=== PATIENT | female | born 1980 | race African-American/Black ===

== ENCOUNTER → 2020-12-20 07:31 | Outpatient (BNVA) | payer MEDICAID, SELFPAY | PROVIDERS: PCP Internal Medicine; Visit Provider Surgery ==

== ENCOUNTER → 2021-01-10 08:21 | Outpatient (BNVA) | payer MEDICAID, SELFPAY | PROVIDERS: PCP Internal Medicine; Visit Provider Surgery ==

== ENCOUNTER → 2021-01-21 08:40 | Outpatient (BNVA) | payer MEDICAID, SELFPAY | PROVIDERS: PCP Internal Medicine; Visit Provider Dietitian, Registered | DX: E66.01 Morbid (severe) obesity due to excess calories (principal); Z68.45 Body mass index [BMI] 70 or greater, adult | CPT/HCPCS: 97802 ==

== ENCOUNTER → 2021-02-11 08:28 | Outpatient (BNVA) | payer MEDICAID, SELFPAY | PROVIDERS: PCP Internal Medicine; Visit Provider Dietitian, Registered ==

== ENCOUNTER 2024-04-24 10:32 | Outpatient (REF) | payer MEDICAID, SELFPAY ==
[2024-04-24 14:29] LABS: MANUAL DIFF FLAG NO
[2024-04-24 14:36] LABS: Basophils Percent Auto 0.5 % (0-2); Eosinophils Absolute Auto 0.1 X10*3/uL (0.0-0.4); Eosinophils Percent Auto 2.2 % (0-4); Hematocrit 38.3 % (37.0-47.0); Hemoglobin 11.7 g/dl (12.0-16.0); Imm Gran Abs Auto 0.04 X10*3/uL (0.00-0.03); Imm Gran Pct Auto 0.7 % (0.0-0.4); Lymphocytes Absolute Auto 1.9 X10*3/uL (1.2-4.9); Lymphocytes Percent Auto 31.6 % (20-40); Mean Corpuscular HGB Conc 30.5 g/dl (31.0-35.0); Mean Corpuscular Hemoglobin 20.9 pg (27.0-33.0); Mean Corpuscular Volume 68.5 fL (80.0-98.0); Mean Platelet Volume 9.9 fL (9.4-12.3); Monocytes Absolute Auto 0.3 X10*3/uL (0.1-1.2); Monocytes Percent Auto 5.7 % (2-11); Neutrophils Absolute Auto 3.6 x10*3/uL (2.0-8.3); Neutrophils Percent Auto 59.3 % (45-73); Platelet Count 393 X10*3/uL (160-400); Red Blood Count 5.59 X10*6/uL (4.20-5.50); Red Cell Distribution Width 19.7 % (11.0-16.0)
[2024-04-24 14:57] LABS: Estimated Average Glucose 97 mg/dL
[2024-04-24 15:03] LABS: Alanine Aminotransferase 16 U/L (0-31); Albumin Level 3.9 g/dL (3.5-5.0); Alkaline Phosphatase 73 U/L (39-117); Anion Gap 13 (12-20); Aspartate Amino Transferase 13 U/L (5-31); Bilirubin Total 0.2 mg/dL (0.0-1.0); Blood Urea Nitrogen 10 mg/dL (9-16); Calcium 9.9 mg/dL (8.4-10.2); Carbon Dioxide 25 mmol/L (22-29); Chloride 106 mmol/L (96-108); Cholesterol 195 mg/dL (<200); Estimated Glomerular Filt Rate > 60; Glucose Random 85 mg/dL (60-115); HDL Cholesterol 37 mg/dL (>40); LDL Cholesterol Calculated 133 mg/dL (<100); Potassium 3.8 mmol/L (3.3-5.1); Sodium 140 mmol/L (135-145); Total Protein 7.5 g/dL (6.5-8.0); Triglycerides 129 mg/dL (<150)
[2024-04-24 16:10] LABS: Free T4 (Free Thyroxine) 0.82 ng/dL (0.71-1.85)
== END 2024-04-24 10:33 | disposition home or self-care (01) ==
LOC: HO.CHCLDS 10:32
PROVIDERS: Visit Provider Internal Medicine
DX: E66.01 Morbid (severe) obesity due to excess calories (principal)
CPT/HCPCS: 36415; 80053; 80061; 83036; 84439; 84443; 85025

== ENCOUNTER 2025-08-31 14:34 | Outpatient (REF) | payer MEDICAID, SELFPAY ==
--- OUTSIDE RECORDS SUMMARY | 2025-08-31 13:45 | XMS_ITS | Encounter Summary ---
Author Organization [employer] Address [address] [facility] 7 [place] [address] Care Team Providers Care Computer Operations Specialist Name Role Phone Mahad Khan MD Primary Care Prov ider Reason for Visit * Reason Comments Annual Exam Encounter Details Date Type Department Care Team ([facility] st Contact Info) Description 2025 1:45 PM EST Office Visit [facility] MED & PEDS [address] [place], [place] [phone] Mahad Khan MD [address] [place] [address] Iron deficiency anemia due to chronic blood loss (Primary Dx); Severe obesity (BMI >= 40) (CMS/HCC) (HCC) Social History Tobacco Use Types Packs/Day Years Used Date Smoking Tobacco: Never Smokeless Tobacco: Never Depression Answer Date Recorded Patient Health Questionnaire-9 Score 5 2025 Patient Health Questionnaire-9 Score 5 2025 Last PHQ-9: Questionnaire Data Not on file 1 11/01/2024 Housing Stability Answer Date Recorded What is your housing situation today? I have gonzalez harkins [address] you li ve. Do you have problems with any of the following? I am not sure 2025 Food Insecurity Answer Date Recorded Within the past 12 months, y ou worried that your food would run out before you got money to buy more: Sometimes True 2024 Within the past 12 months,th e food you bought just didn't last and you didn't have enough money to get more: Sometimes True 2025 Transportation Answer Date Recorded In the past 12 months, has l ack of transportation kept you from medical appts, meetings, work or from getting things needed for daily living? Yes, it has kept me from non-medical meetings, work, or getting things that I need 2025 Utilities Answer Date Recorded In the past 12 months, has t he electric, gas, oil or water company threatened to shut off services in your home? No 2025 Depression Answer Date Recorded Patient Health Questionnaire-2 Score 2 2025 Internet Access Answer Date Recorded Internet Access Q1 Yes 2025 Internet Access Q2 Not on file 2025 Comments Unknown Sex and Gender Information Value Date Recorded Sex Assigned at Female 07/17/2022 10:36 AM EDT Legal Sex Female 10:36 AM EDT Gender Identity Female 07/17/2022 10:36 AM EDT Sexual Orientation Straight 07/17/2022 10 :36 AM EDT documented as of this encounter Last Filed Vital Signs Vital Sign Reading Time Taken Comments Blood Pressure 140/70 2025 1:49 PM EST Pulse 70 2025 1:49 PM EST Temperature 37 C (98.6 F) 2025 1:49 PM EST Respiratory Rate 20 2025 1:49 PM EST Oxygen Saturation 98% 2025 1:49 PM EST Inhaled Oxygen Concentration - - Weight 191 kg (420 lb) 2025 1:49 PM EST Height 157.5 cm (5' 2 ) 2025 1:49 PM EST Body Mass Index 76.82 2025 1:49 PM EST documented in this encounter Functional Status * Over the past 2 weeks, how often have you been bothered by any of the following problems? Question Answer Date of Assessment Author Patient Health Questionnaire -2 Score 2 2025 2:21 PM EST Federico Buckley MA * Little interest or pleasure in doing things Answer Date of Assessment Author Several days 2025 2:21 PM EST Gay-Co Marline schneider [place] * Feeling down, depressed, or hopeless Answer Date of Assessment Author Several days 2025 2:21 PM EST Gay-Marline Parsons MA * Trouble falling or staying asleep, or sleeping too much Answer Date of Assessment Author Not at all 2025 2:21 PM EST Rashid-Co Marline schneider MA * Feeling tired or having little energy Answer Date of Assessment Author Several days 2025 2:21 PM EST Gay-Co Marline schneider [place] * Poor appetite or overeating Answer Date of Assessment Author Not at all 2025 2:21 PM EST Gay-Co Marline schneider MA * Feeling bad about yourself - or that you are a failure or have let yourself or your family down Answer Date of Assessment Author Several days 2025 2:21 PM EST Gay-Co Marline schneider MA * Trouble concentrating on things, such as reading the newspaper or watching television Answer Date of Assessment Author Not at all 2025 2:21 PM Marline Mariee MA * Moving or speaking so slowly that other people could have noticed? Or the opposite - being so fidgety or restless that you have been moving around a lot more than usual. Answer Date of Assessment Author Several days 2025 2:21 PM EST KarlaCo Marline schneider MA * Thoughts that you would be better off or hurting yourself in some way Answer Date of Assessment Author Not at all 2025 2:21 PM EST KarlaCo Marline schneider MA * Patient Health Questionnaire-9 Score Answer Date of Assessment Author 5 2025 2:21 PM EST Gay-Co Marline schneider MA * How difficult have these problems made it for you to do your work, take care of things at home, or get along with other people? Answer Date of Assessment Author Not difficult at all 2025 2:21 PM EST Marline Acevedo MA documented as of this encounter Progress Notes * Mahad Medrano MD - 2025 1:45 PM EST Subjective Patient ID: Chana Collins is a 45 y.o. female who presents for Annual Exam. HPI Patient was seen on office for a physical examination Review of Systems Constitutional: Negative for chills, fatigue and fever. Respiratory: Negative for cough and shortness of breath. Cardiovascular: Negative for chest pain and palpitations. Gastrointestinal: Negative for abdominal distention and abdominal pain. Genitourinary: Negative for difficulty urinating and dysuria. Psychiatric/Behavioral: Negative for agitation. Objective Physical Exam Constitutional: Appearance: Normal appearance. HENT: Right Ear: Tympanic membrane, ear canal and external ear normal. There is no impacted cerumen. Left Ear: Tympanic membrane, ear canal and external ear normal. There is no impacted cerumen. Cardiovascular: Rate and Rhythm: Normal rate and regular rhythm. Heart sounds: No murmur heard. Pulmonary: Effort: Pulmonary effort is normal. No respiratory distress. Breath sounds: No stridor. No wheezing or rhonchi. Abdominal: General: Abdomen is flat. There is no distension. Palpations: There is no mass. Tenderness: There is no abdominal tenderness. Hernia: No hernia is present. Musculoskeletal: General: Normal range of motion. Cervical back: Normal range of motion. No rigidity or tenderness. Lymphadenopathy: Cervical: No cervical adenopathy. Neurological: General: No focal deficit present. Mental Status: She is alert and oriented to person, place, and time. Psychiatric: Mood and Affect: Mood normal. Behavior: Behavior normal. Assessment/Plan Problem List Items Addressed This Visit Iron deficiency anemia - Primary Mild anemia, will order iron levels for further evaluation Relevant Orders Iron And Total Iron Binding Capacity Vitamin B12 (Cobalamin) and Folate Panel, Serum Severe obesity (BMI >= 40) (CMS/HCC) ([facility]) Will start on phentermine and topamax follow up in 1 month for tolerance Relevant Medications phentermine 15 MG capsule topiramate (Topamax) 50 MG tablet documented in this encounter Miscellaneous Notes * Assessment & Plan Note - Mahad Medrano MD - 2025 2:20 PM ESTAssociated Problem(s): Iron deficiency anemia Mild anemia, will order iron levels for further evaluation * Assessment & Plan Note - Mahad Medrano MD - 2025 2:20 PM ESTAssociated Problem(s): Severe obesity (BMI >= 40) (CMS/HCC) (HCC) Will start on phentermine and topamax follow up in 1 month for tolerance documented in this encounter Plan of Treatment Upcoming Encounters Date Type Department Care Team (Late st Contact Info) Description 10/09/2025 9:30 AM EST Clinical Support [facility]S [address] [place] [address] 10/12/2025 8:30 AM EST Telemedicine [facility] [address] [place] [address] Mahad Khan MD [address] [place] [address] documented as of this encounter Procedures Procedure Name Priority Date/Time Associated Diagnosis Comments VITAMIN B12/FOLATE, SERUM PANEL Routine 2025 2:35 PM EST Iron deficiency anemia due to chronic blood loss IRON AND TOTAL IRON BINDING CAPACITY Routine 2025 2:35 PM EST Iron deficiency anemia due to chronic blood loss documented in this encounter Results * Vitamin B12 (Cobalamin) and Folate Panel, Serum (2025 2:35 PM EST) Vitamin B12 413 200 - 900 pg/mL [facility] Comment:NORMAL 200-900 PG/ML INDETERMINATE 160-199 PG/ML DEFICIENT < 160 PG/ML Folate 6.8 > or = 4.0 ng/mL [facility] Comment:Reference Values:> o r = 4.0 ng/mL< 4.0 ng/mL suggests folate deficiency Methotrexate, aminopterin and folinic acid(leucovorin) are chemotherapeutic agents whose molecularstructures are similar to folate; therefore, the Architectfolate assay cannot be used for patients using these drugs. Blood Venous blood specimen / Unknown 2025 2:35 PM EST 2025 6:09 PM EST us Mahad Medrano MD LAB BLOOD ORDERABL ES Final Result Performing Organization Address [facility] Co de Phone Number [facility] [address] [place] [address] [phone] * (ABNORMAL) Iron And Total Iron Binding Capacity (2025 2:35 PM EST) Iron 23(L) 30 - 160 mcg/dL [facility] Total Iron Binding Capacity 327 228 - 428 mcg/dL [facility] Percent Iron Saturation 7(L) 15 - 50 % [facility] Unsaturated Iron Binding 304 ug/dL [facility] Blood Venous blood specimen / Unknown 2025 2:35 PM EST 2025 6:09 PM EST us Mahad Medrano MD LAB BLOOD ORDERABL ES Final Result Performing Organization Address [facility] de Phone Number [facility] [address] [place] [phone] documented in this encounter Visit Diagnoses Diagnosis Iron deficiency anemia due to chronic blood loss- Primary Iron deficiency anemia secondary to blood loss (chronic) Severe obesity (BMI >= 40) (CMS/HCC) (HCC) documented in this encounter Additional Health Concerns Assessment Noted Time PHQ-9 Depression Total Score: 5 08/31/20 25 2:21 PM EST documented as of this encounter Care Teams Computer Operations Specialist Relationship Specialty Start Date End Date Mahad Khan MD [address] [place] [phone] PCP - General Internal Medicine 11/28/19 documented as of this encounter
[2025-08-31 18:34] LABS: Iron 23 mcg/dL (30-160); Percent Iron Saturation 7 % (15-50); Total Iron Binding Capacity 327 mcg/dL (228-428); Unsaturated Iron Binding 304 ug/dL
[2025-08-31 19:14] LABS: Folate 6.8 ng/mL (> or = 4.0); Vitamin B12 413 pg/mL (200-900)
--- OUTSIDE RECORDS SUMMARY | 2025-08-31 21:03 | XMS_ITS | Encounter Summary ---
Author Organization [employer] Address [address] [facility] 7 [place] [address] Care Team Providers Care Filenet Architect Name Role Phone Mahad Khan MD Primary Care Prov ider Reason for Visit * Reason Comments Med Refill Encounter Details Date Type Department Care Team ([facility] st Contact Info) Description 01/11/2024 Refill [facility] MED & PEDS [address] [place], [place] [phone] Mahad Khan MD [address] [place] [address] Social History Tobacco Use Types Packs/Day Years Used Date Smoking Tobacco: Never Assessed Depression Answer Date Recorded Patient Health Questionnaire-9 Score 0 12/28/2022 Housing Stability Answer Date Recorded What is your housing situation today? I have gonzalez harkins 07/04/[address] you li ve. Do you have problems with any of the following? None of the above 07/04/2023 Food Insecurity Answer Date Recorded Within the past 12 months, y ou worried that your food would run out before you got money to buy more: Never True 07/04/2023 Within the past 12 months,th e food you bought just didn't last and you didn't have enough money to get more: Never True Transportation Answer Date Recorded In the past 12 months, has l ack of transportation kept you from medical appts, meetings, work or from getting things needed for daily living? No 12/14/2023 Utilities Answer Date Recorded In the past 12 months, has t he electric, gas, oil or water company threatened to shut off services in your home? Yes 12/14/2023 Depression Answer Date Recorded Patient Health Questionnaire-2 Score 0 12/28/2022 Comments Unknown Sex and Gender Information Value Date Recorded Sex Assigned at Female 07/17/2022 10:36 AM EDT Legal Sex Female 10:36 AM EDT Gender Identity Female 07/17/2022 10:36 AM EDT Sexual Orientation Straight 07/17/2022 10 :36 AM EDT documented as of this encounter Plan of Treatment Upcoming Encounters Date Type Department Care Team (Late st Contact Info) Description 10/09/2025 9:30 AM EST Clinical Support [facility] MED & PEDS [address] [place] [address] 10/12/2025 8:30 AM EST Telemedicine [facility] MED & PEDS [address] [place] [address] Mahad Khan MD [address] [place] [address] documented as of this encounter Visit Diagnoses Not on filedocumented in this encounter Additional Health Concerns Assessment Noted Time PHQ-9 Depression Total Score: 0 12/29/19 23 3:02 PM EDT documented as of this encounter Care Teams Filenet Architect Relationship Specialty Start Date End Date Mahad Khan MD [address] [place] [address] PCP - General Internal Medicine 11/28/19 documented as of this encounter
--- OUTSIDE RECORDS SUMMARY | 2025-08-31 21:03 | XMS_ITS | Encounter Summary ---
Author Organization [employer] Address [address] [facility] [address] [place] [address] Care Team Providers Care Student Support Counselor Name Role Phone Mahad Khan MD Primary Care Prov ider Encounter Details Date Type Department Care Team (Latest Contact Info) Description 2025 Travel Social History Tobacco Use Types Packs/Day Years [...] AM EDT documented as of this encounter Functional Status * Over the past 2 weeks, how often have you been bothered by any of the following problems? Question Answer Date of Assessment Author Patient Health Questionnaire -2 Score 2 2025 2:21 PM EST Rashid-ColonFederico [place] * Little interest or pleasure in doing things Answer Date of Assessment Author Several days 2025 2:21 PM EST Rashid-Co Marline schneider MA * Feeling down, depressed, or hopeless Answer Date of Assessment Author Several days 2025 2:21 PM EST Rashid-Co Marline schneider MA * Trouble falling or staying asleep, or sleeping too much Answer Date of Assessment Author Not at all 2025 2:21 PM EST Rashid-Co Marline schneider MA * Feeling tired or having little energy Answer Date of Assessment Author Several days 2025 2:21 PM EST Rashid-Co Marline schneider MA * Poor appetite or overeating Answer Date of Assessment Author Not at all 2025 2:21 PM EST Rashid-Co Marline schneider MA * Feeling bad about yourself - or that you are a failure or have let yourself or your family down Answer Date of Assessment Author Several days 2025 2:21 PM EST Rashid-Co Marline schneider MA * Trouble concentrating on things, such as reading the newspaper or watching television Answer Date of Assessment Author Not at all 2025 2:21 PM EST Rashid-Co Marline schneider MA * Moving or speaking so slowly that other people could have noticed? Or the opposite - being so fidgety or restless that you have been moving around a lot more than usual. Answer Date of Assessment Author Several days 2025 2:21 PM EST Rashid-Co Marline schneider MA * Thoughts that you would be better off or hurting yourself in some way Answer Date of Assessment Author Not at all 2025 2:21 PM EST Rashid-Co Marline schneider MA * Patient Health Questionnaire-9 Score Answer Date of Assessment Author 5 2025 2:21 PM EST Rashid-Co Marline schneider MA * How difficult have these problems made it for you to do your work, take care of things at home, or get along with other people? Answer Date of Assessment Author Not difficult at all 2025 2:21 PM EST Marline Acevedo MA documented as of this encounter Plan of Treatment Upcoming Encounters Date Type Department Care Team (Late st Contact Info) Description 10/09/2025 9:30 AM EST Clinical Support [facility] MED & PEDS [address] [place] [address] 10/12/2025 8:30 AM EST Telemedicine [facility] MED & PEDS [address] [place] [address] Mahad Khan MD [address] [place] [address] documented as of this encounter Visit Diagnoses Not on filedocumented in this encounter Additional Health Concerns Assessment Noted Time PHQ-9 Depression Total Score: 5 08/31/20 25 2:21 PM EST documented as of this encounter Care Teams Student Support Counselor Relationship Specialty Start Date End Date Mahad Khan MD [address] [place] [address] PCP - General Internal Medicine 11/28/19 documented as of this encounter
--- OUTSIDE RECORDS SUMMARY | 2025-08-31 21:03 | XMS_ITS | Clinical Summary ---
Author Organization [facility] Address [address] [place] [address] Phone Care Team Providers Care Passenger Service Agent Name Role Phone Physician, Pcp Unknown Primary Care Provider Dian vailable Allergies No known active allergies Medications aspirin-acetami nophen-caffeine (EXCEDRIN MIGRAINE) 250-250-65 mg per tablet Take 1 tablet by mouth every 6 (six) hours if needed for headaches for up to 10 days. 30 tablet 08/06/20 25 Active Problems No known active problems Encounters Date Type Department Care Team Description 07/30/2025 Results Follow-Up [facility] Emergency [address] [place] [address] [phone] Jennifer Hickman RN 07/27/2025 11:53 AM EST - 07/27/2025 6:33 PM EST Emergency [facility] Emergency [address] [place] [address] [phone] Nichol Cintron MD Acute nonintractable headache, unspecified headache type (Primary Dx); Right calf pain Discharge Disposition: Home or Self Care from Last 3 Months Social History Tobacco Use Types Packs/Day Years Used Date Smoking Tobacco: Never Assessed Comments Unknown Sex and Gender Information Value Date Recorded Sex Assigned at Not on file Legal Sex Female 10:44 AM EST Gender Identity Not on file Sexual Orientation Not on file Last Filed Vital Signs Vital Sign Reading Time Taken Comments Blood Pressure 118/72 07/27/2025 5:10 PM EST Pulse 62 07/27/2025 5:10 PM EST Temperature 37 C (98.6 F) 07/27/2025 5:10 PM EST Respiratory Rate 17 07/27/2025 5:10 PM EST Oxygen Saturation 99% 07/27/2025 5:10 PM EST Inhaled Oxygen Concentration - - Weight 190 kg (418 lb) 07/27/2025 3:42 PM EST Height 157.5 cm (5' 2 ) 07/27/2025 11:22 AM EST Body Mass Index 76.45 07/27/2025 11:22 AM EST Plan of Treatment Health Maintenance Due Date Last Done Comments Breast Cancer Screening 1980 Hepatitis B Vaccines (1 of 3 - 19+ 3-dose series) 2000 Cervical Cancer Screening: Pap Smear 2002 HPV Vaccines (1 - 3-dose SCDM series) 2008 HIV Screening 08/15/2022 Hepatitis C Screening 08/15/2022 Social Influencers of Health Screening 08/15/2022 Depression Screening 09/17/2024 COVID-19 Vaccine ( season) 2025 08/02/2023, 11/13/2022, 11/04/2021, Additional history exists Cholesterol Screening (Lipid Panel) 04/24/2029 04/24/2024 DTaP,Tdap,and Td Vaccines (3 - Td or Tdap) 11/27/2029 11/28/2019, 11/09/2008 RSV Immunization Adult Patients (1 - 1-dose 75+ series) 2056 Influenza Vaccine Completed 07/15/2025, , 06/27/2023, Additional history exists HIB Vaccines Aged Out No longer eligi ble based on patient's age to complete this topic Hepatitis A Vaccines Aged Out No long er eligible based on patient's age to complete this topic IPV Vaccines Aged Out No longer eligi ble based on patient's age to complete this topic MMR Vaccines Aged Out No longer eligi ble based on patient's age to complete this topic Meningococcal ACWY Vaccine Aged Out N o longer eligible based on patient's age to complete this topic Meningococcal B Vaccine Aged Out No l onger eligible based on patient's age to complete this topic Pneumococcal Vaccine: Pediatrics (0 to 5 Years) and At-Risk Patients (6 to 49 Years) Aged Out No longer eligible based on patient's age to complete this topic RSV Immunization Patients Under 20 months Aged Out No longer eligible based on patient's age to complete this topic Varicella Vaccines Aged Out No longer eligible based on patient's age to complete this topic Procedures Procedure Name Priority Date/Time Associated Diagnosis Comments ECG ANNOTATED 07/28/2025 DOZIER URINE CULTURE TUBE STAT 07/27/2025 5:11 PM EST URINALYSIS WITH REFLEX MICROSCOPIC AND CULTURE STAT 07/27/2025 5:11 PM EST URINALYSIS WITH REFLEX MICROSCOPIC AND CULTURE STAT 07/27/2025 5:11 PM EST CULTURE URINE STAT 07/27/2025 5:11 PM EST HCG, SERUM, QUALITATIVE STAT 07/27/2025 2:29 PM EST THYROID STIMULATING HORMONE STAT 07/27/2025 2:29 PM EST CBC WITH AUTO DIFFERENTIAL STAT 07/27/2025 2:29 PM EST MAGNESIUM STAT 07/27/2025 2:29 PM EST CBC AND DIFFERENTIAL STAT 07/27/2025 2:29 PM EST COMPREHENSIVE METABOLIC PANEL STAT 07/27/2025 2:29 PM EST VAS US DUPLEX LOWER EXT VENOUS RIGHT STAT 07/27/2025 2:14 PM EST Right calf pain ECG 12-LEAD STAT 07/27/2025 1:44 PM EST from Last 3 Months Results * ECG-Annotated (07/28/2025) us Provider Onbase MD ECG ORDERABLES Final Result * (ABNORMAL) Urinalysis with reflex microscopic and culture (07/27/2025 5:11 PM EST) Specific [place] Urine 1.038(H) 1.003 - 1.030 LAB URINALYSIS - AUTOMATED METHOD 07/27/2025 6:32 PM [facility] pH, Urine 5.5 5.0 - 8.0 pH LAB URINALYSIS - AUTOMATED METHOD 07/27/2025 6:32 PM [facility] Leukocytes, Urine Small(A) Negative LAB URINALYSIS - AUTOMATED METHOD 07/27/2025 6:32 PM [facility] Nitrite, Urine Positive(A) Negative LAB URINALYSIS - AUTOMATED METHOD 07/27/2025 6:32 PM [facility] Protein, Urine 30(A) <=Trace mg/dL LAB URINALYSIS - AUTOMATED METHOD 07/27/2025 6:32 PM [facility] Glucose, Urine Negative Negative mg/dL LAB URINALYSIS - AUTOMATED METHOD 07/27/2025 6:32 PM [facility] Ketones, Urine Trace(A) Negative mg/dL LAB URINALYSIS - AUTOMATED METHOD 07/27/2025 6:32 PM [facility] Urobilinogen , Urine 1.0 0.2 - 1.0 mg/dL LAB URINALYSIS - AUTOMATED METHOD 07/27/2025 6:32 PM [facility] Bilirubin, Urine Negative Negative LAB URINALYSIS - AUTOMATED METHOD 07/27/2025 6:32 PM [facility] Blood, Urine Large(A) Negative LAB URINALYSIS - AUTOMATED METHOD 07/27/2025 6:32 PM [facility] RBC, Urine 30(H) 0 - 4 /HPF 07/27/2025 6:32 PM [facility] WBC, Urine >100(H) 0 - 4 /HPF 07/27/2025 6:32 PM [facility] Squamous Epithelial, Urine >100(H) 0 - 60 /LPF 07/27/2025 6:32 PM [facility] Bacteria, Urine Moderate(A) Negative /HPF 07/27/2025 6:[address] [facility] Hyaline Casts, Urine 0 0 - 3 /LPF 07/27/2025 6:32 PM [facility] Urine Urine specimen obtained by clean catch procedure / Unknown Non-blood Collection / Unknown 07/27/2025 5:11 PM EST 07/27/2025 5:34 PM EST Nichol Cintron MD LAB URINE ORDERABLES Final Res ult [facility] [address] [place] [address], [place] [phone] * Dozier urine culture tube (07/27/2025 5:11 PM EST) Extra Tube Hold for add-ons. 07/27/2025 7:[address] [facility] Comment:Auto resulted. Urine Urine specimen obtained by clean catch procedure / Unknown Non-blood Collection / Unknown 07/27/2025 5:11 PM EST 07/27/2025 5:34 PM EST us Nichol Cintron MD LAB URINE ORDERABLES Final Res ult [facility] [address] [place] [address], [place] [phone] * (ABNORMAL) Culture urine (07/27/2025 5:11 PM EST) Culture, Urine >=100,000 CFU/mL Escherichia coli(A) LUIS 07/30/2025 8:14 AM [facility] Culture, Urine 50,000-100,000 CFU/mL Escherichia coli(A) LUIS 07/30/2025 8:14 AM [facility] Comment: The organism value for this result has been updated. These results have been appended to the previously preliminary verified report. Urine Urine specimen obtained by clean catch procedure / Unknown Non-blood Collection / Unknown 07/27/2025 5:11 PM EST 07/27/2025 6:32 PM EST Narrative Organism Antibiotic Method Susceptibility Escherichia coli Amoxicillin/Clavulanate LUIS >=32 ug/ml: Resistant Comment:This is an a ppended report. These results have been appended to a previously preliminary verified report. Escherichia coli Ampicillin/Sulbactam LUIS >=32 ug/ml: Resistant Comment:This is an a ppended report. These results have been appended to a previously preliminary verified report. Escherichia coli Piperacillin/Tazobactam LUIS <=4 ug/ml: Susceptible Comment:This is an a ppended report. These results have been appended to a previously preliminary verified report. Escherichia coli Cefazolin (Urine) LUIS 8 ug/ml: Susceptible Comment:This is an a ppended report. These results have been appended to a previously preliminary verified report. Escherichia coli Cefoxitin LUIS <=4 ug/ml: Susceptible Comment:This is an a ppended report. These results have been appended to a previously preliminary verified report. Escherichia coli Ceftazidime LUIS <=0.5 ug/ml: Susceptible Comment:This is an a ppended report. These results have been appended to a previously preliminary verified report. Escherichia coli Ceftriaxone LUIS <=0.25 ug/ml: Susceptible Comment:This is an a ppended report. These results have been appended to a previously preliminary verified report. Escherichia coli Cefepime LUIS <=0.12 ug/ml: Susceptible Comment:This is an a ppended report. These results have been appended to a previously preliminary verified report. Escherichia coli Meropenem LUIS <=0.25 ug/ml: Susceptible Comment:This is an a ppended report. These results have been appended to a previously preliminary verified report. Escherichia coli Amikacin LUIS 2 ug/ml: Susceptible Comment:This is an a ppended report. These results have been appended to a previously preliminary verified report. Escherichia coli Gentamicin LUIS >=16 ug/ml: Resistant Comment:This is an a ppended report. These results have been appended to a previously preliminary verified report. Escherichia coli Ciprofloxacin LUIS <=0.06 ug/ml: Susceptible Comment:This is an a ppended report. These results have been appended to a previously preliminary verified report. Escherichia coli Levofloxacin LUIS <=0.12 ug/ml: Susceptible Comment:This is an a ppended report. These results have been appended to a previously preliminary verified report. Escherichia coli Nitrofurantoin LUIS <=16 ug/ml: Susceptible Comment:This is an a ppended report. These results have been appended to a previously preliminary verified report. Escherichia coli Trimethoprim/Sulfamethoxazole LUIS >=320 ug/ml: Resistant Comment:This is an a ppended report. These results have been appended to a previously preliminary verified report. Escherichia coli Amoxicillin/Clavulanate LUIS 4 ug/ml: Susceptible Escherichia coli Ampicillin/Sulbactam LUIS <=2 ug/ml: Susceptible Escherichia coli Piperacillin/Tazobactam LUIS <=4 ug/ml: Susceptible Escherichia coli Cefazolin (Urine) LIUS <=1 ug/ml: Susceptible Escherichia coli Cefoxitin LUIS <=4 ug/ml: Susceptible Escherichia coli Ceftazidime LUIS <=0.5 ug/ml: Susceptible Escherichia coli Ceftriaxone LUIS <=0.25 ug/ml: Susceptible Escherichia coli Cefepime LUIS <=0.12 ug/ml: Susceptible Escherichia coli Meropenem LUIS <=0.25 ug/ml: Susceptible Escherichia coli Amikacin LUIS 2 ug/ml: Susceptible Escherichia coli Gentamicin LUIS <=1 ug/ml: Susceptible Escherichia coli Ciprofloxacin LUIS >=4 ug/ml: Resistant Escherichia coli Levofloxacin LUIS >=8 ug/ml: Resistant Escherichia coli Nitrofurantoin LUIS <=16 ug/ml: Susceptible Escherichia coli Trimethoprim/Sulfamethoxazole LUIS <=20 ug/ml: Susceptible us Nichol Cintron MD LAB MICROBIOLOGY - GENERAL ORD ERABLES Final Result [facility] [address] [place] [address], * (ABNORMAL) CBC auto differential (07/27/2025 2:29 PM EST) [facility] Signature WBC 7.3 4.8 - 10.8 K/mcL LAB HEMETOLOGY METHOD 07/27/2025 2:55 PM [facility] RBC 5.40(H) 3.80 - 4.80 M/mcL LAB HEMETOLOGY METHOD 07/27/2025 2:55 PM [facility] Hemoglobin 10.7(L) 11.5 - 16.0 g/dL LAB HEMETOLOGY METHOD 07/27/2025 2:55 PM [facility] Hematocrit 35.8 35.0 - 47.0 % LAB HEMETOLOGY METHOD 07/27/2025 2:55 PM [facility] MCV 66.9(L) 79.0 - 98.0 FL LAB HEMETOLOGY METHOD 07/27/2025 2:55 PM [facility] MCH 20.0(L) 27.0 - 32.0 pcg LAB HEMETOLOGY METHOD 07/27/2025 2:55 PM [facility] MCHC 29.9(L) 32.0 - 37.0 g/dL LAB HEMETOLOGY METHOD 07/27/2025 2:55 PM [facility] RDW 19.7(H) 11.0 - 15.0 % LAB HEMETOLOGY METHOD 07/27/2025 2:55 PM [facility] Platelets 328 130 - 400 K/mcL LAB HEMETOLOGY METHOD 07/27/2025 2:55 PM [facility] MPV 9.7 7.0 - 11.0 FL LAB HEMETOLOGY METHOD 07/27/2025 2:55 PM [facility] NRBC 0.0 <1.0 % LAB HEMETOLOGY METHOD 07/27/2025 2:55 PM [facility] NRBC Absolute 0.00 <0.10 K/mcL LAB HEMETOLOGY METHOD 07/27/2025 2:55 PM [facility] Neutrophils Relative 57.1 % LAB HEMETOLOGY METHOD 07/27/2025 2:55 PM [facility] Lymphocytes Relative 32.7 % LAB HEMETOLOGY METHOD 07/27/2025 2:55 PM [facility] Monocytes Relative 6.3 % LAB HEMETOLOGY METHOD 07/27/2025 2:55 PM [facility] Eosinophils Relative 2.9 % LAB HEMETOLOGY METHOD 07/27/2025 2:55 PM [facility] Basophils Relative 0.4 % LAB HEMETOLOGY METHOD 07/27/2025 2:55 PM [facility] Immature Granulocytes Relative 0.6 % LAB HEMETOLOGY METHOD 07/27/2025 2:55 PM [facility] Neutrophils Absolute 4.15 1.50 - 7.00 K/mcL LAB HEMETOLOGY METHOD 07/27/2025 2:55 PM [facility] Lymphocytes Absolute 2.38 1.00 - 5.00 K/mcL LAB HEMETOLOGY METHOD 07/27/2025 2:55 PM [facility] Monocytes Absolute 0.46 0.20 - 1.00 K/mcL LAB HEMETOLOGY METHOD 07/27/2025 2:55 PM [facility] Eosinophils Absolute 0.21 0.00 - 0.50 K/mcL LAB HEMETOLOGY METHOD 07/27/2025 2:55 PM [facility] Basophils Absolute 0.03 0.00 - 0.20 K/mcL LAB HEMETOLOGY METHOD 07/27/2025 2:55 PM [facility] Immature Granulocytes Absolute 0.04(H) 0.00 - 0.03 K/mcL LAB HEMETOLOGY METHOD 07/27/2025 2:55 PM [facility] Blood Venous blood specimen / Unknown Venipuncture / Unknown 07/27/2025 2:29 PM EST 07/27/2025 2:45 PM EST Nichol Cintron MD LAB BLOOD ORDERABLES Final Res ult [facility] [address] [place] [address], [place] [phone] * hCG Qualitative (07/27/2025 2:29 PM EST) hCG Qual Negative Negative 07/27/2025 3:[address] [facility] Blood Venous blood specimen / Unknown Venipuncture / Unknown 07/27/2025 2:29 PM EST 07/27/2025 2:45 PM EST Nichol Cintron MD LAB BLOOD ORDERABLES Final Res ult Performing Organization Address [facility]/ZIP Co de Phone Number [facility] [address] [place] [address], [place] [phone] * Thyroid Stimulating Hormone (TSH) (07/27/2025 2:29 PM EST) TSH 3.78 0.40 - 4.00 mcIU/mL LAB CHEMISTRY METHOD 07/27/2025 5:[address] [facility] Blood Venous blood specimen / Unknown Venipuncture / Unknown 07/27/2025 2:29 PM EST 07/27/2025 2:45 PM EST Nichol Cintron MD LAB BLOOD ORDERABLES Final Res ult Performing Organization Address City/[facility]/ZIP Co de Phone Number [facility] [address] [place] [address], [place] [phone] * Magnesium (07/27/2025 2:29 PM EST) Magnesium 2.3 1.9 - 2.6 mg/dL LAB CHEMISTRY METHOD 07/27/2025 3:[address] [facility] Blood Venous blood specimen / Unknown Venipuncture / Unknown 07/27/2025 2:29 PM EST 07/27/2025 2:45 PM EST us Nichol Cintron MD LAB BLOOD ORDERABLES Final Res ult [facility] [address] [place] [address], [place] [phone] * Comprehensive Metabolic Panel (CMP) (07/27/2025 2:29 PM EST) Pathologist [facility] [place] Sodium 138 133 - 145 mmol/L LAB CHEMISTRY METHOD 07/27/2025 3:13 PM [facility] Potassium 4.2 3.5 - 5.5 mmol/L LAB CHEMISTRY METHOD 07/27/2025 3:13 PM [facility] Chloride 105 96 - 110 mmol/L LAB CHEMISTRY METHOD 07/27/2025 3:13 PM [facility] CO2 29 21 - 32 mmol/L LAB CHEMISTRY METHOD 07/27/2025 3:13 PM [facility] Anion Gap 4 3 - 11 LAB CHEMISTRY METHOD 07/27/2025 3:13 PM [facility] Glucose 90 70 - 100 mg/dL LAB CHEMISTRY METHOD 07/27/2025 3:13 PM [facility] BUN 10 5 - 25 mg/dL LAB CHEMISTRY METHOD 07/27/2025 3:13 PM [facility] Creatinine 0.71 0.50 - 1.10 mg/dL LAB CHEMISTRY METHOD 07/27/2025 3:13 PM [facility] eGFR 108 >=60 mL/min/1. 73m2 LAB CHEMISTRY METHOD 07/27/2025 3:13 PM [facility] Comment:Calculation based on the Chronic Kidney Disease Epidemiology Collaboration (CKD-EPI) equation refit without adjustment for race. BUN/Creatinine Ratio 14.1 LAB CHEMISTRY METHOD 07/27/2025 3:13 PM [facility] Calcium 9.2 8.5 - 10.5 mg/dL LAB CHEMISTRY METHOD 07/27/2025 3:[address] [facility] AST (SGOT) 10 10 - 42 unit/L LAB CHEMISTRY METHOD 07/27/2025 3:13 PM [facility] ALT (SGPT) 17 10 - 60 unit/L LAB CHEMISTRY METHOD 07/27/2025 3:13 PM [facility] Alkaline Phosphatase 101 42 - 121 unit/L LAB CHEMISTRY METHOD 07/27/2025 3:13 PM [facility] Total Protein 6.9 6.0 - 8.0 g/dL LAB CHEMISTRY METHOD 07/27/2025 3:13 PM [facility] Albumin 3.2 3.2 - 5.0 g/dL LAB CHEMISTRY METHOD 07/27/2025 3:13 PM [facility] Total Bilirubin 0.3 0.0 - 1.4 mg/dL LAB CHEMISTRY METHOD 07/27/2025 3:[address] [facility] Blood Venous blood specimen / Unknown Venipuncture / Unknown 07/27/2025 2:29 PM EST 07/27/2025 2:45 PM EST us Nichol Cintron MD LAB BLOOD ORDERABLES Final Res ult [facility] [address] [place] [address], * Vascular US Duplex Lower Extremity Venous Right (07/27/2025 2:14 PM EST) Anatomical Region Laterality Modality Vascular, Abdomen Ultrasound 07/27/2025 2:16 PM EST Impressions 07/27/2025 2:16 PM EST NO RIGHT LOWER EXTREMITY DEEP VENOUS THROMBOSIS. -------- FINAL REPORT -------- Dictated By: Venkat Gonzalez Dictated Date: 07/27/2025 14:16 ET Assigned Physician: Venkat Gonzalez Reviewed and Electronically Signed By: Venkat Gonzalez Signed Date: 07/27/2025 14:16 ET Workstation ID: [id number] Transcribed By: Self Edit Transcribed Date: 07/27/2025 14:16 ET Narrative 07/27/2025 2:16 PM EST Ultrasound duplex right lower extremity. INDICATION: pain in extremities TECHNIQUE: 2-D and color Doppler imaging of the right lower extremity venous vasculature with compression and augmentation maneuvers. COMPARISON: No priors available. FINDINGS: There is normal flow, compression, and augmentation from the common femoral through the popliteal vein. No fluid collection. Procedure Note Venkat Gonzalez MD - 07/27/2025 Ultrasound duplex right lower extremity. INDICATION: pain in extremities TECHNIQUE: 2-D and color Doppler imaging of the right lower extremityvenous vasculature with compression and augmentation maneuvers. COMPARISON: No priors available. FINDINGS: There is normal flow, compression, and augmentation from the commonfemoral through the popliteal vein. No fluid collection. IMPRESSION: NO RIGHT LOWER EXTREMITY DEEP VENOUS THROMBOSIS. -------- FINAL REPORT -------- Dictated By: Venkat Gonzalez Dictated Date: 07/27/2025 14:16 ET Assigned Physician: Venkat Gonzlaez Reviewed and Electronically Signed By: Venkat Gonzalez Signed Date: 07/27/2025 14:16 ET Workstation ID: [id number] Transcribed By: Self Edit Transcribed Date: 07/27/2025 14:16 ET us Nichol Cintron MD CV VASCULAR PROCEDURES Final R esult * 12-Lead ECG (07/27/2025 1:44 PM EST) Ventricular Rate ECG 65 BPM GEMUSE Atrial Rate 65 BPM GEMUSE P-R Interval 144 ms GEMUSE QRS Duration 94 ms GEMUSE Q-T Interval 422 ms GEMUSE QTc 438 ms GEMUSE P Wave [place] 59 degrees GEMUSE R [place] 63 degrees GEMUSE T [place] 44 degrees GEMUSE ECG Interpretation Normal sinus rhythm Normal ECG No previous ECGs available Confirmed by MD Tripathi Christopher ([id number]) on 07/27/2025 5:18:47 PM GEMUSE 07/27/2025 1:44 PM EST 07/27/2025 5:18 PM EST us Nichol Cintron MD ECG ORDERABLES Final Result GEMUSE from Last 3 Months Insurance * Guarantor: Chana Collins Account Type Relation to Patient Date of Phone Billing Address Personal/Family Self 1980 [address] [place], [place] Care Teams Passenger Service Agent Relationship Specialty Start Date End Date Physician, Pcp Unknown PCP - General 07/27/25
--- OUTSIDE RECORDS SUMMARY | 2025-08-31 21:03 | XMS_ITS | Encounter Summary ---
Author Organization [facility] Address [address] [place] [address] Care Team Providers Care Sr. Social Media & Mobile Manager Name Role Phone Physician, Pcp Unknown Primary Care Provider Dian vailable Encounter Details Date Type Department Care Team ([facility] st Contact Info) Description 07/30/2025 Results Follow-Up [facility] Emergency [address] [place] [id number] Jennifer Hickman, RN Social History Tobacco Use Types Packs/Day Years Used Date Smoking Tobacco: Never Assessed Comments Unknown Sex and Gender Information Value Date Recorded Sex Assigned at Not on file Legal Sex Female 10:44 AM EST Gender Identity Not on file Sexual Orientation Not on file documented as of this encounter Progress Notes * Jennifer Hickman RN - 07/30/2025 2:09 PM EST Rx called in for macrobid 100 mg bid x 7 days per M Ella [facility]AGUIRRE to [facility] documented in this encounter Plan of Treatment Not on file documented as of this encounter Visit Diagnoses Not on filedocumented in this encounter Care Teams Sr. Social Media & Mobile Manager Relationship Specialty Start Date End Date Physician, Pcp Unknown PCP - General 07/27/25 documented as of this encounter
--- OUTSIDE RECORDS SUMMARY | 2025-08-31 21:03 | XMS_ITS | Clinical Summary ---
Author Organization [employer] Address 75 [facility] 7t [place] [address] Care Team Providers Care Bore Mill Operator For Plastic Name Role Phone Mahad hKan MD Primary Care Prov ider Allergies No known active allergies Medications ferrous gluconate (Fergon) 324 (38 Fe) MG tablet Take 1 tablet by mouth 1 (one) time each day. 2 Active diclofenac (Cataflam) 50 MG tablet TAKE 1 TABLET BY MOUTH THREE TIMES A DAY 90 tablet 4 Active phentermine 15 MG capsule Take 1 capsule (15 mg) by mouth before breakfast. 30 capsule 5 09/30/19 26 Active topiramate (Topamax) 50 MG tablet Take 1 tablet (50 mg) by mouth Once per day. 30 tablet 1 5 10/30/19 26 Active Semaglutide-We ight Management (Wegovy) 2.4 MG/0.75ML solution auto-injector Inject 2.4 mg under the skin 1 (one) time per week. 2 mL 3 4 08/31/20 25 Discontinued Active Problems Problem Noted Date Diagnosed Date Encounter for screening mamm ogram for malignant neoplasm of breast 12/26/2023 Assessment & Plan (12/26/2023 12:12 AM EDT): Will place mammogram order Snoring 12/26/2023 Assessment & Plan (12/26/2023 12:12 AM EDT): Will refer for sleep apnea screening Severe obesity (BMI >= 40) (CMS/[facility]) 05/17/2023 Assessment & Plan (2025 2:20 PM EST): Will start on phentermine and topamax follow up in 1 month for tolerance Assessment & Plan (04/24/2024 10:27 AM EDT): Patient has lost almost 40lbs, no side efffects reported, will increase dose to 2.4mg Assessment & Plan (03/14/2024 11:50 AM EDT): Patient has been using wegovy consistently, has lost almost 10 more pounds in a month, she is lossing cloth sizes as well, reinforced importance of exercise, will increase wegovy to 1.7mg, follow up in 1 month in office to verify weight and if dose tolerated will consider increasing it to 2.4mg Assessment & Plan (02/06/2024 5:19 AM EDT): Patient has tolerated wegovy, no side effects reported, has lost 6 lbs in 1 month, will increase dose, follow up in 1 month Assessment & Plan (12/26/2023 12:11 AM EDT): Will start on wegvy, risk vs benefits discussed, Assessment & Plan (06/18/2023 8:40 AM EDT): Reviewed medication and will cont current dose, rtc in 2 months. Target of 5% weight loss. Discussed calorie deficit, recommended reduction of 20-30% of maintenance calories; hydrographical technical officer referral offered. Recommended to decrease soda and sugary beverage consumption. Recommended at least 20 g per meal of protein to assist with satiety. Recommended at least 150 min/week of moderate intensity exercise. Phentermine/topamax: 15/50 mg. Discussed side effects-> tachycardia, HTN, teratogenic, cognitive dysfuction, metabolic acidosis, constipation, dysgeusia. Denies hx of , hyperthyroidism, MAOI use or glaucoma. Denies hx of kidney stones. Binge eating disorder 05/17/2023 Left hip pain 05/17/2023 Assessment & Plan (06/18/2023 8:39 AM EDT): Improved. Letter for work generated Assessment & Plan (05/17/2023 12:00 PM EDT): Patient presented visit with complaints of hip pain will send for XRay Referred to Orthopedic Recommended Physical Therapy for hip improvement. Follow up in 1 week. Iron deficiency anemia 03/13/2022 Assessment & Plan (2025 2:20 PM EST): Mild anemia, will order iron levels for further evaluation Assessment & Plan (12/28/2022 4:23 PM EDT): On oral iron replacement, denied rectal bleeding, will order new labs for guidance of therapy Assessment & Plan (08/28/2022 1:31 PM EST): Patient refers taking her iron replacement daily, lab ordered on last visit not performed, will follow up for guidance of therapy Menorrhagia 03/13/2022 Vitamin D deficiency 03/13/2022 Assessment & Plan (12/28/2022 4:22 PM EDT): Will place order for follow up/guidance of therapy Encounters Date Type Department Care Team Description 2025 1:45 PM EST Office Visit [facility] [address] [place] [address] Mahad Khan MD Iron deficiency anemia due to chronic blood loss (Primary Dx); Severe obesity (BMI >= 40) (CMS/HCC) (HCC) 2025 Travel 08/28/2025 Telephone [facility] [address] [place] [address] Mahad Khan MD chart prep 08/24/2025 Patient Outreach [facility] [address] [place] [address] Mahad Khan MD Pre-visit Planning (SDOH unable to reach LVM ) 08/19/2025 Population Health Risk Score [facility] Department [address] [place] [address], [place] [id number] Provider, Population Health Generic from Last 3 Months Immunizations Immunization Administration Dates Next Due Influenza Injectable Quadriv alant Preservative Free IIV4 MDCK 08/14/2022 Influenza injectable quadriv alent IIV4 with preservative 11/28/2019 Tdap 11/28/2019,11/09/2008 Social History Tobacco Use Types Packs/Day Years Used Date Smoking Tobacco: Never Smokeless Tobacco: Never Tobacco Cessation:Counseling Given: Not Answered Depression Answer Date Recorded Patient Health Questionnaire-9 [...] Orientation Straight 07/17/2022 10 :36 AM EDT Last Filed Vital Signs Vital Sign Reading [...] Mass Index 76.82 2025 1:49 PM EST Plan of Treatment Upcoming Encounters Date Type Department Care Team ([facility] st Contact Info) Description 10/09/2025 9:30 AM EST Clinical Support [facility] [address] [place] [address] 10/12/2025 8:30 AM EST Telemedicine [facility] [address] [place] [address] ChenMahad Larios MD [address] [place] [address] Health Maintenance Due Date Last Done Comments Family Planning (PISQ) 1996 HPV Vaccines (1 - 3-dose series) 1996 Hepatitis C Screening 1999 Hepatitis B Vaccines (1 of 3 - 19+ 3-dose series) 2000 Mammogram 2021 COVID-19 Vaccine ( season) 2025 08/02/2023, 11/13/2022, 11/04/2021, Additional history exists Disability Screening 03/25/2026 03/25/2025 Cervical Cancer Screening 08/30/2026 HPV/Cotest 08/30/2026 08/30/2021 Pap Smear 08/30/2026 08/30/2021 Alcohol/Substance Use Screening 2026 2025 Depression Screening 2026 2025, 08/31/20 25 SDOH Screening 2026 2025 Tobacco Screening 2026 2025 Lipid Panel 04/24/2029 04/24/2024, 08/04/2021 DTaP/Tdap/Td Vaccines (3 - Td or Tdap) 11/27/2029 11/28/2019, 11/09/2008 Zoster Vaccines (1 of 2) 2031 RSV Patients and Patients Aged 60 years or older (1 - 1-dose 75+ series) 2056 HIV Screening Completed 11/28/2019 Influenza Vaccine Completed 07/15/2025, , 06/27/2023, Additional [...] patient's age to complete this topic Meningococcal Vaccine Aged Out No wyatt jose luis eligible based on patient's age to complete this topic Pneumococcal Vaccine: Pediatrics (0 to 5 Years) and At-Risk Patients (6 to 49) Years Aged Out No longer eligible based on patient's age to complete this topic RSV under 20 months Aged Out No longe r eligible based on patient's age to complete this topic Rotavirus Vaccines Aged Out No longer eligible based on patient's age to complete this topic Procedures Procedure Name Priority Date/Time Associated Diagnosis Comments VITAMIN B12/FOLATE, SERUM PANEL Routine 2025 2:35 PM EST Iron deficiency anemia due to chronic blood loss IRON AND TOTAL IRON BINDING CAPACITY Routine 2025 2:35 PM EST Iron deficiency anemia due to chronic blood loss LIPID PANEL, STANDARD Routine 04/24/2024 10:34 AM EDT Severe obesity (BMI >= 40) (CMS/HCC) THINPREP IMAGING PAP AND HPV MRNA E6/E7, WITH CT/NG, TRICHOMONAS Routine 08/30/2021 2:01 PM EST ZZZ HISTORICAL HIV AB/AG Routine 11/28/2019 11:03 AM EDT from Last 3 Months or Most Recently Relevant to Health Maintenance Results * Vitamin B12 (Cobalamin) and Folate Panel, Serum (2025 2:35 PM EST) Vitamin B12 413 200 - 900 pg/mL [facility] Comment:NORMAL 200-900 PG/ML INDETERMINATE 160-199 PG/ML DEFICIENT < 160 PG/ML Folate 6.8 > or = 4.0 ng/mL [facility] Comment:Reference Values:> o r = 4.0 ng/mL< 4.0 ng/mL suggests folate deficiency Methotrexate, aminopterin and folinic acid(leucovorin) are chemotherapeutic agents whose molecularstructures are similar to folate; therefore, the Architectfolate assay cannot be used for patients using these drugs. Blood Venous blood specimen / Unknown 2025 2:35 PM EST 2025 6:09 PM EST Mahad Medrano MD LAB BLOOD ORDERABL ES Final Result Performing Organization Address [facility]/ZIP Co de Phone Number [facility] [address] [place] [address] [phone] * (ABNORMAL) Iron And Total Iron Binding Capacity (2025 2:35 PM EST) Iron 23(L) 30 - 160 mcg/dL [facility] Total Iron Binding Capacity 327 228 - 428 mcg/dL [facility] Percent Iron Saturation 7(L) 15 - 50 % [facility] Unsaturated Iron Binding 304 ug/dL [facility] Blood Venous blood specimen / Unknown 2025 2:35 PM EST 2025 6:09 PM EST Mahad Medrano MD LAB BLOOD ORDERABL ES Final Result Performing Organization Address City/[facility]/ZIP Co de Phone Number [facility] [address] [place] [address] [phone] * (ABNORMAL) Lipid Panel, Standard (04/24/2024 10:34 AM EDT) Triglycerides 129 <150 mg/dL [facility] Comment:Desirable Triglyceri de: less than 150 mg/dLBorderline High Triglyceride 150-199 mg/dLHigh Triglyceride: 200-499 mg/dLVery High Triglyceride: greater than or equal to 5OO mg/dL Cholesterol 195 <200 mg/dL [facility] Comment:Desirable Cholestero l: less than 200 mg/dLBorderline High Cholesterol: 200-239 mg/dLHigh Cholesterol: greater than 239 mg/dL LDL Cholesterol Calculated 133(H) <100 mg/dL [facility] Comment:Desirable LDL: less than 100 mg/dLNear Optimal/Above Optimal LDL: 110- 129 mg/dLBorderline High LDL: 130-159 mg/dLHigh LDL: 160-189 mg/dLVery High LDL: greater than or equal to 190 mg/dL HDL Cholesterol 37(L) >40 mg/dL [facility] Comment:Desirable HDL: great er than 40 mg/dL Note: This HDL assay may give artificially low results in patients with liver disease. Blood Venous blood specimen / Unknown 04/24/2024 10:34 AM EDT 04/24/2024 2:24 PM EDT us Mahad Medrano MD LAB BLOOD ORDERABL ES Final Result [facility] [address] [place] [phone] * THINPREP TIS PAP AND HPV mRNA E6/E7, CT/NG, TRICH (08/30/2021 2:01 PM EST) Chlamydia trachomatis RNA, TMA, Urogenital NOT DETECTED NOT DETECTED [facility] Clinical Information: None given [facility] COMMENT SEE COMMENT [facility] Comment: The analytical performance characteristics of this assay, when used to test SurePath(TM) specimens have been determined by [employer]. The modifications have not been cleared or approved by the FDA. This assay has been validated pursuant to the CLIA regulations and is used for clinical purposes. For additional information, please refer to https://education.CloudBase3/faq/MOV527 (This link is being provided for information/ educational purposes only.) COMMENT SEE COMMENT [facility] Comment: EXPLANATORY NOTE: The Pap is a screening test for cervical cancer. It is not a diagnostic test and is subject to false negative and false positive results. It is most reliable when a satisfactory sample, regularly obtained, is submitted with relevant clinical findings and history, and when the Pap result is evaluated along with historic and current clinical information. Comment: This Pap test has been evaluated with computer assisted technology. [facility]: SEE COMMENT [facility] Comment: KENNEY CT(ASCP) CT screening location: [place] [address] HPV nRNA E6/E7 Not Detected Not Detected [facility] Comment: Methodology: Sap Portal Architect-Mediated Amplification This assay detects E6/E7 viral messenger RNA (mRNA) from 14 high-risk HPV types (16,18,31,33,35,39,45,51,52,56,58,59,66,68). The analytical performance characteristics of this assay have been determined by [employer]. The modifications have not been cleared or approved by the FDA. This assay has been validated pursuant to the CLIA regulations and is used for clinical purposes. For additional information, please refer to http://Mevio.CloudBase3/faq/BVO124f9 (This link if provided for information/ educational purposes only.) Infection Shift in vaginal veto suggestive of bacterial vaginosis. [facility] Interpretation/Re sult: Negative for intraepithelial lesion or malignancy. [facility] LMP: [id number] [facility] Neisseria gonorrhoeae RNA, TMA, Urogenital NOT DETECTED NOT DETECTED [facility] Prev. BX: NONE GIVEN [facility] Prev. PAP: NONE GIVEN [facility] SOURCE: None given [facility] Statement Of Adequacy: SEE COMMENT [facility] Comment: Satisfactory for evaluation. Endocervical/transformation zone component absent. Trichomonas vaginalis, QL, TMA, PAP Vial NOT DETECTED NOT DETECTED [facility] Comment: The analytical performance characteristics of this assay have been determined by [employer]. The modifications have not been cleared or approved by the FDA. This assay has been validated pursuant to the CLIA regulations and is used for clinical purposes. For additional information, please refer to http://education.Cabara.[employer]/ faq/Trichomonastma (This link is being provided for information/ educational purposes only.) 08/30/2021 2:01 PM EST Fernanda [facility] LAB PATHOLOGY ORDERABLES Final Result Performing Organization Address [facility] Phone Number [facility] [address] * HIV AB/AG (11/28/2019 11:03 AM EDT) HIV AG/AB NONREACTIVE NR [facility] Comment: HIV-1 p24 Ag and/or HIV-1/HIV-2 Ab not detected. A test result that is nonreactive does not exclude the possibility of exposure to or infection with HIV-1 and/or HIV-2. Nonreactive results in this assay for individuals with prior exposure to HIV-1 and/or HIV-2 may be due to antigen and antibody levels that are below the limit of detection of this assay. The [employer] Board Repair Technician HIV Ag/Ab Combo assay result and supplemental assay results should be interpreted in conjunction with the patient's clinical presentation, history and other laboratory results. If the results are inconsistent with clinical evidence, additional testing is suggested to confirm the result. 11/28/2019 11:0 3 AM EDT us Mahad Medrano MD HISTORICAL/NON ORD ERABLE LABS Final Result Performing Organization Address [facility] de Phone Number [facility] [address] from Last 3 Months or Most Recently Relevant to Health Maintenance Insurance C3 Care Teams Bore Mill Operator For Plastic Relationship Specialty Start Date End Date Mahad Khan MD [address] [place] [phone] PCP - General Internal Medicine 11/28/19
--- OUTSIDE RECORDS SUMMARY | 2025-08-31 21:03 | XMS_ITS | Encounter Summary ---
Author Organization [employer] Address 75 [facility] 7 [place] [address] Care Team Providers Care Cage Supervisor Name Role Phone Mahad Khan MD Primary Care Prov ider Reason for Visit * Reason Onset Date Comments Nurse Triage 09/28/2023 Encounter Details Date Type Department Care Team (Late st Contact Info) Description 09/28/2023 Telephone [facility] [address] [place] [address] Mahad Khan MD [address] [place] [address] Nurse Triage Social History Tobacco Use Types Packs/Day Years Used Date Smoking Tobacco: Never Assessed Depression Answer Date Recorded Patient Health Questionnaire-9 Score 0 12/28/2022 Housing Stability Answer Date Recorded What is your housing situation today? I have gonzalezjacki harkins 07/04/[address] you [...] living? Yes, it has kept me from medical appointments or getting medications. 06/26/2023 Utilities Answer Date Recorded In the past 12 months, has t he electric, gas, oil or water [place] threatened to shut off services in your home? No 07/04/2023 Depression Answer Date Recorded Patient Health Questionnaire-2 Score 0 12/28/2022 Comments Unknown Sex and Gender Information Value Date Recorded Sex Assigned at Female 07/17/2022 10:36 AM EDT Legal Sex Female 10:36 AM EDT Gender Identity Female 07/17/2022 10:36 AM EDT Sexual Orientation Straight 07/17/2022 10 :36 AM EDT documented as of this encounter Miscellaneous Notes * Telephone Encounter - Divya Lu RN - 09/28/2023 12:35 PM EST Call to Chana Collins, denies any symptoms. Just wants referral to [facility] weight management program . Had been given meds by Dr. Wilkins in office in past. Pt provided NPI number of [id number]. * Telephone Encounter - Divya Lu RN - 09/28/2023 12:08 PM EST Call returned to Chana Collins for triage. No answer LVM to return call to [facility] triage line [phone]. * Telephone Encounter - Mai Stephens - 09/28/2023 11:58 AM EST Symptom: Weight Loss Outcome: Schedule an appointment to be seen within 24 hours Reason: pt is requesting a referral for [facility] weight management. The caller accepted this outcome documented in this encounter Plan of Treatment Upcoming Encounters Date Type Department Care Team ([facility] st Contact Info) Description 10/09/2025 9:30 AM EST Clinical Support [facility] [address] [place] [address] 10/12/2025 8:30 AM EST Telemedicine [facility] [address] [place] [address] Mahad Khan MD [address] [place] [address] documented as of this encounter Visit Diagnoses Not on filedocumented in this encounter Additional Health Concerns Assessment Noted Time PHQ-9 Depression Total Score: 0 12/29/19 23 3:02 PM EDT documented as of this encounter Care Teams Cage Supervisor Relationship Specialty Start Date End Date Mahad Khan MD [address] [place] [address] PCP - General Internal Medicine 11/28/19 documented as of this encounter
--- OUTSIDE RECORDS SUMMARY | 2025-08-31 21:03 | XMS_ITS | Encounter Summary ---
Author Organization [employer] Address 75 [facility] 7 [place] [address] Care Team Providers Care Business Applications Developer Name Role Phone Mahad Khan MD Primary Care Prov ider Reason for Visit * Reason Onset Date Comments chart prep 08/28/2025 Encounter Details Date Type Department Care Team ([facility] st Contact Info) Description 08/28/2025 Telephone [facility] [address] [place] [address] Mahad Khan MD [address] [place] [address] chart prep Social History Tobacco Use Types Packs/Day Years Used Date Smoking Tobacco: Never Smokeless Tobacco: Never Depression Answer Date Recorded Patient Health Questionnaire-9 Score 0 03/14/2024 Patient Health Questionnaire-9 Score 0 03/14/2024 Last PHQ-9: Questionnaire Data Not on file 0 03/14/2024 Housing Stability Answer Date Recorded What is [...] Date Recorded Patient Health Questionnaire-2 Score 0 03/14/2024 Comments Unknown Sex and Gender Information Value Date Recorded Sex Assigned at Female 07/17/2022 10:36 AM EDT Legal Sex Female 10:36 AM EDT Gender Identity Female 07/17/2022 10:36 AM EDT Sexual Orientation Straight 07/17/2022 10 :36 AM EDT documented as of this encounter Miscellaneous Notes * Telephone Encounter - Mechelle Perez MA - 08/28/2025 3:21 PM EST Chart Prep Labs: done Images: not done Referrals: complete Vaccines due: Covid, Flu, Hep B, and HPV Screenings: mammogram Overdue care gaps: SBIRT, SDOH, and PHQ-9 documented in this encounter Plan of Treatment Upcoming Encounters Date Type Department Care Team (Late st Contact Info) Description 10/09/2025 9:30 AM EST Clinical Support [facility] [address] [place] [address] 10/12/2025 8:30 AM EST Telemedicine [facility] [address] [place] [address] Mahad Khan MD [address] [place] [address] documented as of this encounter Visit Diagnoses Not on filedocumented in this encounter Additional Health Concerns Assessment Noted Time PHQ-9 Depression Total Score: 0 03/14/20 24 9:21 AM EDT documented as of this encounter Care Teams Business Applications Developer Relationship Specialty Start Date End Date Mahad Khan MD [address] [place] [address] PCP - General Internal Medicine 11/28/19 documented as of this encounter
--- OUTSIDE RECORDS SUMMARY | 2025-08-31 21:03 | XMS_ITS | Encounter Summary ---
Author Organization [email or web address] Address 75 [facility] 7 [place] [address] Care Team Providers Care Aircraft Structural Fitter Name Role Phone Mahad Khan MD Primary Care Prov ider Encounter Details Date Type Department Care Team (Late st Contact Info) Description 08/01/2024 Orders Only [facility] [address] [place], [place] [phone] Mahad Khan MD [address] [place] [address] Social History Tobacco Use Types Packs/Day Years [...] 9:30 AM EST Clinical Support [facility] [address] [place] [address] 10/12/2025 8:30 AM EST Telemedicine [facility] [address] [place] [address] Mahad Khan MD [address] [place] [address] documented as of this encounter Visit Diagnoses Not on filedocumented in this encounter Additional Health Concerns Assessment Noted Time PHQ-9 Depression Total Score: 0 03/14/20 24 9:21 AM EDT documented as of this encounter Care Teams Aircraft Structural Fitter Relationship Specialty Start Date End Date Mahad Khan MD [address] [place] [address] PCP - General Internal Medicine 11/28/19 documented as of this encounter
== END 2025-08-31 14:35 | disposition home or self-care (01) ==
LOC: HO.CHCLDS 14:34
PROVIDERS: Visit Provider Internal Medicine
DX: D50.0 Iron deficiency anemia secondary to blood loss (chronic) (principal)
CPT/HCPCS: 36415; 82607; 82746; 83540